=== PATIENT | male | born 1970 | race Two or more races ===

== ENCOUNTER 2016-09-02 21:25 | Emergency (ER) | payer OTHER ==
[~2016-09-02] VITALS: Ht 172.7 cm; Wt 88.5 kg
[2016-09-02 21:56] VITALS: BP 146/84
[2016-09-02] MEDS ORDERED: HYDR-971 PO (22:28)
--- NOTE | 2016-09-02 22:28 | PHYS DOC ---
Past Medical History Past Medical History: Other Additional Past Medical Histor: pre diabetic Past Surgical History: Cholecystectomy Alcohol Use: None Drug Use: None Adult General Chief Complaint Chief Complaint: MECHANICAL FALL HPI HPI Patient is a 45 year old male presenting to the emergency department for evaluation of back pain and right forearm pain status post fall while he was at work. 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 He denies any head neck chest abdomen pain status post fall and says that he has to come here to get cleared to go back to work. He says that he has some numbness and tingling in his right pinky and half of his ring finger but he has good range of motion of all of his extremities with no open wounds or abrasions. Review of Systems Review of Systems Constitutional: Denies fever or chills [] Cardiovascular: No additional information not addressed in HPI [] GI: Denies abdominal pain, nausea, vomiting, bloody stools or diarrhea [] : Denies dysuria or hematuria [] Musculoskeletal: + back pain and R eblow joint pain [] Integument: Denies rash or skin lesions [] Neurologic: Denies headache, focal weakness. + sensory changes [] Current Medications Current Medications Current Medications Medications (Trade) Dose Ordered Sig/Mohinder Start Time Stop Time Status Last Admin Dose Admin Ibuprofen (Motrin) 800 mg 1X ONCE 09/02/16 22:15 09/02/16 22:16 UNV Physical Exam Physical Exam Constitutional: Well developed, well nourished, no acute distress, non-toxic appearance. [] HENT: Normocephalic, atraumatic, bilateral external ears normal, oropharynx moist, no oral exudates, nose normal. [] Eyes: PERRLA, EOMI, conjunctiva normal, no discharge. [] Neck: Normal range of motion, no tenderness, supple, no stridor. [] Cardiovascular:Heart rate regular rhythm, no murmur [] Lungs & Thorax: Bilateral breath sounds clear to auscultation [] Abdomen: Bowel sounds normal, soft, no tenderness, no masses, no pulsatile masses. [] Skin: Warm, dry, no erythema, no rash. [] Back: Positive midline T for through T6 midline tenderness, no CVA tenderness. [ ] Extremities: Good range of motion of right shoulder elbow and wrist. Neurologic: Alert and oriented X 3, normal motor function, normal sensory function, no focal deficits noted. [] Current Patient Data Vital Signs Vital Signs Date Time Temp Pulse Resp B/P (MAP) Pulse Ox O2 Delivery O2 Flow Rate FiO2 09/02/16 21:56 98.0 62 18 146/84 (104) 98 Room Air 98.0 EKG EKG [] Radiology/Procedures Radiology/Procedures Thoracic spine x-rays show no obvious fracture dislocation or soft tissue abnormality Course & Med Decision Making Course & Med Decision Making Patient with older neurapraxia status post fall on his older nerve that he says is improving on repeat exam. His neurologic exam is completely normal and he appears well with normal vital signs be discharged with instructions to take ibuprofen for pain and follow with a primary care provider later next week and come back to the ER sooner with any worsening pain weakness or other general concerns. Dragon Disclaimer Dragon Disclaimer This electronic medical record was generated, in whole or in part, using a voice recognition dictation system. 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 Scripts Hydrocodone/Apap 5-325 (NORCO 5-325 TABLET) 1 Each Tablet 1 TAB PO PRN Q6HRS Y for PAIN, #14 TAB 0 Refills Prov: MILLIE BERRY DO 09/02/16 Problem Qualifiers Primary Impression: Thoracic back pain Chronicity: acute Back pain laterality: midline Qualified Codes: M54.6 - Pain in thoracic spine MILLIE BERRY DO Sep 02, 2016 22:28
[2016-09-02] MEDS ORDERED: IBUPROFEN 800 MG TABLET. PO ONE (22:35)
[2016-09-02 22:40] LABS: BARBITURATES NEG (NEG); BENZODIAZEPINES NEG (NEG); CANNABINOIDS NEG (NEG); COCAINE NEG (NEG); METHADONE NEG (NEG); OPIATES NEG (NEG); PHENCYCLIDINE NEG (NEG)
--- NOTE | 2016-09-03 07:35 | RAD ---
Thoracic spine, 3 views, 09/02/2016: History: Mid thoracic pain after a fall No fracture or dislocation is identified. There are minimal scattered marginal spurs. The paraspinous soft tissues are unremarkable. IMPRESSION: No acute thoracic spine abnormality is detected.
== END 2016-09-02 22:44 | disposition home or self-care (01) ==
LOC: ER 21:25
DX: S54.01XA Injury of ulnar nerve at forearm level, right arm, initial encounter (principal); M54.6 Pain in thoracic spine; Z90.49 Acquired absence of other specified parts of digestive tract; W00.0XXA Fall on same level due to ice and snow, initial encounter; Y93.E5 Activity, floor mopping and cleaning; Y92.69 Other specified industrial and construction area as the place of occurrence of the external cause; Y99.0 Civilian activity done for income or pay
CPT/HCPCS: 36415; 72072; 80305; 80320; G0480; G0481; 99285-25